=== PATIENT | male | born 1970 | race Caucasian/White ===

== ENCOUNTER → 2016-07-23 | Outpatient (CLI) | payer OTHER ==
--- NOTE | 2016-07-26 07:28 | OR ---
ADMIT: 07/23/2016 RM/LOC: [facility] MR#: [id number] [facility] [address] [place] [id number] CRISTA PATEL [address] [place] [address] Operative/Delivery Room Report SEX: M AGE: 45 : 1970 SURGERY DATE: 07/23/2016 SURGEON: Markus Gay MD PREOPERATIVE DIAGNOSIS: Right hip labral tear. POSTOPERATIVE DIAGNOSIS: Right hip labral tear. PROCEDURE: Right fluoroscopic-guided hip injection with 8 of lidocaine and 2 of Kenalog 40. COMPLICATIONS: None. INDICATION: Mr. Patel had a right hip labral tear. I gave him an injection a little over three months ago. He got really good relief. It kind of wore off a little bit so we went ahead and scheduled for repeat injection and he is here for that today. DESCRIPTION OF PROCEDURE: The patient is identified, written informed consent, and then a time-out, cleaned and prepped his right groin. We brought the x-ray in and confirmed we were able to get the spinal needle intra- articular. Injected solution of 8 of lidocaine and 2 of Kenalog 40, and then took the needle out. He tolerated it very well. We will see him back in another three months. Markus Gay MD/ njv JOB #: [id number] CC: Markus Gay, Attending Physician Susie Walker, Family Physician
== END | disposition home or self-care (01) ==
LOC: RAD.S 09:00
PROC: 0S993ZZ Drainage of Right Hip Joint, Percutaneous Approach (ICD-10-PCS; principal; 2016-07-23)
DX: S73.101A Unspecified sprain of right hip, initial encounter (principal)